=== PATIENT | female | born 1995 | race Caucasian/White ===

== ENCOUNTER 2017-03-11 06:15 | Inpatient (IN) | payer OTHER ==
[~2017-03-11] VITALS: Ht 172.7 cm; Wt 117.0 kg
[~2017-03-11 06:15] MED LIST: BENTYL10 MG PO; IBUP800 PO; Pepcid20 MG PO; Percocet 5-3251 EACH PO; Verotin-Gr Cap1 EACH PO
[2017-03-11] MEDS ORDERED: Verotin-Gr Cap1 EACH PO (06:31)
[2017-03-11] MEDS ORDERED: LABE100 PO (06:32)
[2017-03-11 06:40] LABS: BASOPHILS ABSOLUTE AUTO 0.01 K/mm3 (0.00-0.23); BASOPHILS PERCENT AUTO 0 % (0-2); EOSINOPHILS ABSOLUTE AUTO 0.07 K/mm3 (0.00-0.68); EOSINOPHILS PERCENT AUTO 1 % (0-6); Hematocrit 33.8 % (33.0-51.0); Hemoglobin 11.5 g/dL (11.5-16.0); IMMATURE GRAN ABSOLUTE AUTO 0.08 K/mm3 (0.00-0.10); IMMATURE GRAN PERCENT AUTO 1 % (0-1); LYMPHOCYTES ABSOLUTE AUTO 2.21 K/mm3 (0.84-5.20); LYMPHOCYTES PERCENT AUTO 28 % (21-46); MONOCYTES PERCENT AUTO 8 % (4-13); Mean Corpuscular HGB 28.4 pg (26.0-34.0); Mean Corpuscular Volume 84 fL (80-100); Mean Platelet Volume 9.6 fL (9.1-12.4); NEUTROPHILS ABSOLUTE AUTO 4.87 K/mm3 (1.96-9.15); NEUTROPHILS PERCENT AUTO 62 % (41-73); Platelet Count 243 K/mm3 (150-400); RDW Coefficient Variation 13.3 % (11.7-14.2); RDW Standard Deviation 40.4 fL (35.1-46.3); Red Blood Cell Count 4.05 M/mm3 (3.80-5.20); White Blood Cell Count 7.84 K/mm3 (4.00-11.30)
[2017-03-11 06:55] LABS: Alanine Aminotransfer (ALT/SGP 21 U/L (12-78); Albumin, Blood 2.6 g/dL (3.4-5.0); Albumin/Globulin Ratio 0.7 (0.8-1.8); Alk Phos 106 U/L (50-136); Anion Gap 9 mmol/L (6-16); Aspartate Aminotrans (AST/SGOT 22 U/L (12-37); Bilirubin, Direct <0.1 mg/dL (0.0-0.3); Bilirubin, Indirect Unable to Calculate mg/dL (0.1-0.7); Bilirubin, Total 0.4 mg/dL (0.1-1.0); Blood Urea Nitrogen 9 mg/dL (8-24); Bun/Creatinine Ratio 13.9 (12.0-20.0); CO2, Blood 25 mmol/L (21-32); Calcium, Blood 8.6 mg/dL (8.5-10.1); Chloride, Blood 105 mmol/L (98-108); Creatinine, Blood 0.65 mg/dL (0.40-1.00); Globulin, Blood 3.8 g/dL (2.2-4.0); Glomerular Filtration Rate >60 (60-); Glucose, Blood 122 mg/dL (70-99); Potassium, Blood 3.3 mmol/L (3.5-5.5); Sodium, Blood 139 mmol/L (136-145); Total Protein, Blood 6.4 g/dL (6.4-8.2)
[2017-03-12 05:33] LABS: Hematocrit 34.1 % (33.0-51.0); Hemoglobin 11.4 g/dL (11.5-16.0); Mean Corpuscular HGB 28.5 pg (26.0-34.0); Mean Corpuscular HGB Conc 33.4 g/dL (31.5-36.5); Mean Corpuscular Volume 85 fL (80-100); Mean Platelet Volume 9.8 fL (9.1-12.4); Platelet Count 239 K/mm3 (150-400); RDW Coefficient Variation 13.5 % (11.7-14.2); RDW Standard Deviation 41.9 fL (35.1-46.3); White Blood Cell Count 10.64 K/mm3 (4.00-11.30)
--- NOTE | 2017-03-12 10:18 | NUR ---
MOM IN ROOM WITH NB, MOM HAS SOME ANXIETY R/T BRF LAST CHILD WITH NO MILK PRODUCTION, REINFORCED THAT IT IS HER CHOICE AND BOTTLE FEEDING IS FINE.
[2017-03-12] MEDS ORDERED: IBUP800 PO (15:20)
[2017-03-12] MEDS ORDERED: Percocet 5-3251 EACH PO (15:20)
--- NOTE | 2017-03-12 16:05 | NUR ---
DC'D HOME WITH NB, AMBULATED OUT. ALL DC INSTRUCTIONS GONE OVER, ALL QUESTIONS ANSWERED.
== END 2017-03-12 16:05 | disposition home or self-care (01) | DRG 775 ==
LOC: BC 06:15
PROVIDERS: ADMIT Obstetrics & Gynecology
PROC: 10E0XZZ Delivery of Products of Conception, External Approach (ICD-10-PCS; principal; 2017-03-11)
PROC: 3E0P3VZ Introduction of Hormone into Female Reproductive, Percutaneous Approach (ICD-10-PCS; 2017-03-11)
PROC: 10907ZC Drainage of Amniotic Fluid, Therapeutic from Products of Conception, Via Natural or Artificial Opening (ICD-10-PCS; 2017-03-11)
DX: O14.94 Unspecified pre-eclampsia, complicating childbirth (principal); Z37.0 Single live birth; Z3A.37 37 weeks gestation of pregnancy; Z87.891 Personal history of nicotine dependence
CPT/HCPCS: 36415; 51702; 80053; 82248; 85025; 85027; J2590; J7120

== ENCOUNTER → 2017-05-13 | Outpatient (CLI) | payer OTHER ==
[~2017-05-13] MED LIST changes: +LABE100 PO
== END | disposition home or self-care (01) ==
LOC: LAB 14:43
DX: R30.0 Dysuria (principal)
CPT/HCPCS: 87077; 87086; 87186

== ENCOUNTER 2018-07-05 20:46 | Emergency (ER) | payer OTHER ==
[~2018-07-05] VITALS: Ht 172.7 cm; Wt 108.9 kg
[2018-07-05] MEDS ORDERED: ERYT1OIN LEFTEYE (22:34)
[2018-07-07 05:14] LABS: HCV ANTIBODY <0.1 (0.0-0.9); HIV SCREEN 4TH GENERATION WRFX Non Reactive (Non Reactive)
== END 2018-07-05 23:52 | disposition home or self-care (01) ==
LOC: ER 20:46
PROVIDERS: Physician Assistant
DX: Z77.21 Contact with and (suspected) exposure to potentially hazardous body fluids (principal); Z87.891 Personal history of nicotine dependence
CPT/HCPCS: 36415; 84460; 86317; 86803; 87389; 99283

== ENCOUNTER 2020-11-25 08:53 | Inpatient (IN) | payer OTHER ==
[~2020-11-25] VITALS: Ht 172.7 cm; Wt 127.0 kg
[~2020-11-25 08:53] MED LIST changes: +ERYT1OIN LEFTEYE
[2020-11-25 09:45] LABS: BASOPHILS ABSOLUTE AUTO 0.04 K/mm3 (0.00-0.23); BASOPHILS PERCENT AUTO 0 % (0-2); EOSINOPHILS ABSOLUTE AUTO 0.07 K/mm3 (0.00-0.68); EOSINOPHILS PERCENT AUTO 1 % (0-6); Hematocrit 37.9 % (33.0-51.0); IMMATURE GRAN ABSOLUTE AUTO 0.12 K/mm3 (0.00-0.10); IMMATURE GRAN PERCENT AUTO 1 % (0-1); LYMPHOCYTES ABSOLUTE AUTO 1.91 K/mm3 (0.84-5.20); LYMPHOCYTES PERCENT AUTO 21 % (21-46); MONOCYTES ABSOLUTE AUTO 0.64 K/mm3 (0.16-1.47); MONOCYTES PERCENT AUTO 7 % (4-13); Mean Corpuscular HGB 28.9 pg (26.0-34.0); Mean Corpuscular HGB Conc 34.3 g/dL (31.5-36.5); Mean Corpuscular Volume 84 fL (80-100); Mean Platelet Volume 9.8 fL (9.1-12.4); NEUTROPHILS ABSOLUTE AUTO 6.34 K/mm3 (1.96-9.15); NEUTROPHILS PERCENT AUTO 70 % (41-73); Platelet Count 307 K/mm3 (150-400); RDW Coefficient Variation 12.9 % (11.7-14.2); RDW Standard Deviation 39.7 fL (35.1-46.3); White Blood Cell Count 9.12 K/mm3 (4.00-11.30)
[2020-11-25] MEDS ORDERED: LABE100 PO ×3 (09:47→09:49)
[2020-11-25] MEDS ORDERED: OMEP20ER PO (09:47)
[2020-11-25 10:22] LABS: SARS-Cov-2 (COVID-19) PCR, MMC NEGATIVE (NEGATIVE)
[2020-11-26 06:19] LABS: BASOPHILS ABSOLUTE AUTO 0.04 K/mm3 (0.00-0.23); BASOPHILS PERCENT AUTO 0 % (0-2); EOSINOPHILS ABSOLUTE AUTO 0.08 K/mm3 (0.00-0.68); EOSINOPHILS PERCENT AUTO 1 % (0-6); Hematocrit 35.2 % (33.0-51.0); Hemoglobin 11.6 g/dL (11.5-16.0); IMMATURE GRAN ABSOLUTE AUTO 0.13 K/mm3 (0.00-0.10); IMMATURE GRAN PERCENT AUTO 1 % (0-1); LYMPHOCYTES ABSOLUTE AUTO 2.84 K/mm3 (0.84-5.20); LYMPHOCYTES PERCENT AUTO 24 % (21-46); MONOCYTES ABSOLUTE AUTO 1.12 K/mm3 (0.16-1.47); MONOCYTES PERCENT AUTO 10 % (4-13); Mean Corpuscular HGB 28.5 pg (26.0-34.0); Mean Corpuscular Volume 87 fL (80-100); Mean Platelet Volume 9.6 fL (9.1-12.4); NEUTROPHILS ABSOLUTE AUTO 7.55 K/mm3 (1.96-9.15); NEUTROPHILS PERCENT AUTO 64 % (41-73); Platelet Count 274 K/mm3 (150-400); RDW Standard Deviation 40.6 fL (35.1-46.3); Red Blood Cell Count 4.07 M/mm3 (3.80-5.20); White Blood Cell Count 11.76 K/mm3 (4.00-11.30)
[2020-11-26] MEDS ORDERED: LABE200 PO (09:25)
[2020-11-26] MEDS ORDERED: LABE100 PO (17:09)
--- NOTE | 2020-11-26 17:19 | NUR ---
parents given written and verbal dc instructions, questions answered. will follow up with dr vasquez within 6 weeks. she will also follow up here as indicated by serum bili with within 1-2 days.
--- NOTE | 2020-11-26 18:26 | NUR ---
PT WILL FOLLOW UP TOMORROW AT 1000AM WITH BETTY FOR PPFU.
== END 2020-11-26 18:08 | disposition home or self-care (01) | DRG 806 ==
LOC: BC 08:53 → OBS 08:53 → BC 08:54 → OBS 09:33 → BC 09:33
PROVIDERS: ADMIT Obstetrics & Gynecology
PROC: 10E0XZZ Delivery of Products of Conception, External Approach (ICD-10-PCS; principal; 2020-11-25)
PROC: 0HQ9XZZ Repair Perineum Skin, External Approach (ICD-10-PCS; 2020-11-25)
DX: O42.02 Full-term premature rupture of membranes, onset of labor within 24 hours of rupture (principal); O10.92 Unspecified pre-existing hypertension complicating childbirth; Z37.0 Single live birth; Z3A.37 37 weeks gestation of pregnancy; O43.123 Velamentous insertion of umbilical cord, third trimester; O70.0 First degree perineal laceration during delivery; Z79.899 Other long term (current) drug therapy
CPT/HCPCS: 36415; 59025; 82947; 85025; 86850; 86900; 86901; A9270; J1885; J2001; J2590; J3010; J7120; U0004

== ENCOUNTER → 2022-05-06 | Outpatient (CLI) | payer OTHER ==
[~2022-05-06] MED LIST changes: +LABE200 PO; +OMEP20ER PO
[2022-05-07 15:11] LABS: HPV 16 Negative (Negative); HPV 18 Negative (Negative); HPV OTHER HR TYPES Negative (Negative)
== END | disposition home or self-care (01) ==
LOC: LAB SHORT 12:00 → LAB 12:00
PROVIDERS: Registered Nurse
DX: Z01.419 Encounter for gynecological examination (general) (routine) without abnormal findings (principal)
CPT/HCPCS: 87624; G0145

== ENCOUNTER 2022-11-28 00:17 | Emergency (ER) | payer OTHER ==
[~2022-11-28] VITALS: Ht 172.7 cm; Wt 124.7 kg
[2022-11-28 01:23] VITALS: BP 140/96
== END 2022-11-28 03:51 | disposition home or self-care (01) ==
LOC: ER 00:17
DX: S93.401A Sprain of unspecified ligament of right ankle, initial encounter (principal); W10.8XXA Fall (on) (from) other stairs and steps, initial encounter; Z79.899 Other long term (current) drug therapy; Z87.891 Personal history of nicotine dependence
CPT/HCPCS: 73610; 73630; 99283-25; A9270